=== PATIENT | female | born 1965 | race Two or more races ===

== ENCOUNTER 2018-10-27 08:52 | Inpatient (IN) | payer MEDICAID ==
[~2018-10-27] VITALS: Ht 152.4 cm; Wt 77.1 kg
[2018-10-27 09:01] VITALS: Ht 152.4 cm; Wt 77.1 kg
[2018-10-27 09:47] LABS: BASOPHIL % 1.1 % (0-2); PLATELET COUNT 237 x10^3mcL (130-400)
[2018-10-27 09:49] LABS: RED CELL DISTRIBUTION WIDTH 14.6 % (11.5-14.5)
[2018-10-27 09:50] LABS: CALCIUM 8.9 mg/dL (8.5-10.1); CARBON DIOXIDE 31.4 mmol/L (21-32); CHLORIDE SERUM 107 mmol/L (98-107); CREATININE SERUM 0.8 mg/dL (0.6-1.0); GFR1 > 60 mL/min; GLUCOSE SERUM 101 mg/dL (74-106); POTASSIUM SERUM 3.8 mmol/L (3.5-5.1); SODIUM SERUM 141 mmol/L (136-145)
[2018-10-27 09:54] LABS: ALBUMIN 3.9 g/dL (3.4-5.0); ALKALINE PHOSPHATASE 106 U/L (46-116); ALT/SGPT 24 U/L (14-59); AST/SGOT 21 U/L (15-37); LIPASE 190 IU/L (73-393); TOTAL PROTEIN, SERUM 7.6 g/dL (6.4-8.2)
[2018-10-27 13:21] LABS: CHOLESTEROL/HDL RATIO 2.8; MAGNESIUM 2.1 mg/dL (1.8-2.4); PHOSPHOROUS 3.2 mg/dL (2.5-4.9)
[2018-10-27 13:26] LABS: T3 TOTAL 1.14 ng/mL
[2018-10-27 13:31] LABS: FREE T4 0.94 ng/dL (0.76-1.46); FREE THYROXINE INDEX 2.7 ug/dL (1.4-4.5); T4(THYROXINE) 8.3 ug/dL (4.7-13.3)
[2018-10-27 13:45] LABS: microscopic required? NO
[2018-10-27 13:51] LABS: urine erythrocyte NEGATIVE (NEGATIVE)
[2018-10-27 14:15] LABS: AMPHETAMINE QUAL UR NONE DETECTED (See below)
[2018-10-27 15:12] VITALS: BP 126/70
[2018-10-27 17:09] VITALS: BP 134/69
[2018-10-27 21:36] VITALS: BP 132/78
[2018-10-28] VITALS (7 sets, daily range): BP systolic 99–141; BP diastolic 49–72
[2018-10-28 06:57] LABS: CALCIUM 8.9 mg/dL (8.5-10.1); CARBON DIOXIDE 25.4 mmol/L (21-32); CHLORIDE SERUM 107 mmol/L (98-107); CREATININE SERUM 0.8 mg/dL (0.6-1.0); GFR1 > 60 mL/min; GLUCOSE SERUM 79 mg/dL (74-106); MAGNESIUM 1.8 mg/dL (1.8-2.4); PHOSPHOROUS 3.8 mg/dL (2.5-4.9); POTASSIUM SERUM 3.6 mmol/L (3.5-5.1); SODIUM SERUM 142 mmol/L (136-145)
[2018-10-28 07:38] LABS: BASOPHIL % 0.6 % (0-2); PLATELET COUNT 224 x10^3mcL (130-400); RED CELL DISTRIBUTION WIDTH 13.8 % (11.5-14.5)
[2018-10-29 05:43] VITALS: BP 117/60
[2018-10-29 06:11] LABS: BASOPHIL % 0.1 % (0-2); PLATELET COUNT 228 x10^3mcL (130-400); RED CELL DISTRIBUTION WIDTH 13.9 % (11.5-14.5)
[2018-10-29 06:33] LABS: CALCIUM 9.4 mg/dL (8.5-10.1); CARBON DIOXIDE 28.2 mmol/L (21-32); CHLORIDE SERUM 103 mmol/L (98-107); CREATININE SERUM 0.8 mg/dL (0.6-1.0); GFR1 > 60 mL/min; GLUCOSE SERUM 102 mg/dL (74-106); MAGNESIUM 1.7 mg/dL (1.8-2.4); PHOSPHOROUS 4.2 mg/dL (2.5-4.9); POTASSIUM SERUM 3.7 mmol/L (3.5-5.1); SODIUM SERUM 140 mmol/L (136-145)
[2018-10-29 10:27] VITALS: BP 114/54
[2018-10-29 13:20] VITALS: BP 114/54
== END 2018-10-29 14:39 | disposition home or self-care (01) | DRG 263 ==
LOC: ED 08:52 → DU 12:22
PROVIDERS: Emergency Medicine; Family Medicine; Radiology Diagnostic Radiology; Surgery
PROC: 0FT44ZZ Resection of Gallbladder, Percutaneous Endoscopic Approach (ICD-10-PCS; principal; 2018-10-28 13:15)
DX: K80.20 Calculus of gallbladder without cholecystitis without obstruction (principal); N17.0 Acute kidney failure with tubular necrosis; K21.9 Gastro-esophageal reflux disease without esophagitis; K29.70 Gastritis, unspecified, without bleeding; E05.80 Other thyrotoxicosis without thyrotoxic crisis or storm; D64.9 Anemia, unspecified
CPT/HCPCS: 83880; 84439; J0690; J1170; J2405; J3010; J3490; J7030; J7120; Q0092